=== PATIENT | female | born 1990 | race Caucasian/White ===

== ENCOUNTER 2017-04-26 15:46 | Emergency (ER) | payer OTHER ==
[~2017-04-26] VITALS: Ht 160 cm; Wt 90.9 kg
[~2017-04-26 15:46] MED LIST: ATIVAN0.5 MG PO; NAPROSYN500 MG PO; QUASENSE1 EACH PO; TRAMADOL HCL50 MG PO
[2017-04-26] MEDS ORDERED: ISENTRESS400 MG PO (19:27)
[2017-04-26] MEDS ORDERED: TRUVADA 100 MG1 EACH PO (19:27)
[2017-04-26] MEDS ORDERED: ZOFRAN ODT4 MG PO (19:27)
[2017-04-26 19:37] LABS: ANION GAP 10 MEQ/L (2-14); CHLORIDE 106 MEQ/L (99-109); SAMPLE HEMOLYSIS CHECK 0; SAMPLE ICTERIC CHECK 0; SAMPLE LIPEMIA CHECK 0; SODIUM 140 MEQ/L (136-147); TOTAL BILIRUBIN 0.3 MG/DL (0.0-1.0)
[2017-04-26 19:39] LABS: QUANTITATIVE HCG < 4.0 MIU/ML
[2017-04-26 19:42] LABS: ALKALINE PHOSPHATASE 81 IU/L (3-129); GFR ESTIMATE (CALCULATED) > 59 mL/min/; GLUCOSE 88 mg/dL (70-99); UREA NITROGEN (BUN) 16 mg/dL (9-23)
[2017-04-26 19:59] LABS: EOSINOPHIL (%) 4.4 % (0-5); EOSINOPHIL COUNT 0.3 K/uL (0-0.3); HEMATOCRIT 40.4 % (36.0-46.0); IMMATURE GRANULOCYTE (%) 0.2 % (0.0-0.7); LYMPHOCYTE COUNT 2.7 K/uL (1.0-2.8); MCH 31.6 PG (29.0-34.0); MCHC 32.9 G/DL (30.0-36.0); MEAN PLAT.VOLUME 10.3 uM^3 (9.5-12.4); MONOCYTE (%) 7.2 % (3-12); MONOCYTE COUNT 0.5 K/uL (0-0.8); NEUTROPHIL (%) 46.3 % (45-76); PLATELET COUNT 239 K/uL (156-360); RBC DIS.WIDTH-CV 12.4 % (11.8-14.6); RBC DIS.WIDTH-SD 43.6 % (39-53); RED BLOOD COUNT 4.21 M/uL (3.80-5.20); WHITE BLOOD COUNT 6.4 K/uL (4.1-10.2)
[2017-04-26] MEDS ORDERED: PROPRANOLOL HCL80 MG PO (20:06)
[2017-04-26] MEDS ORDERED: SERTRALINE HCL25 MG PO (20:07)
[2017-04-26 20:43] VITALS: BP 141/95
[2017-04-27 10:46] LABS: HBSG INDEX 0.21
[2017-04-27 10:47] LABS: ANTI-HEPATITIS B CORE (IGM) Nonreactive; HBC IgM INDEX 0.06; HIV INDEX 0.16; HIV-1/2 AB/AG COMBO Nonreactive
[2017-04-27 11:13] LABS: AHBS INDEX > 1000.00
[2017-04-27 11:17] LABS: HEPATITIS B SURFACE ANTIBODY REACTIVE
== END 2017-04-26 20:43 | disposition home or self-care (01) ==
LOC: EME 15:46
PROVIDERS: Nurse Practitioner Family
DX: Z77.21 Contact with and (suspected) exposure to potentially hazardous body fluids (principal); Z57.8 Occupational exposure to other risk factors; Y99.0 Civilian activity done for income or pay; Y92.149 Unspecified place in prison as the place of occurrence of the external cause
CPT/HCPCS: 80053; 84702; 85025; 86703; 86705; 86706; 86803; 87340; 99281; 99284